=== PATIENT | male | born 1990 ===

== ENCOUNTER 2020-03-02 01:54 | Outpatient (CLI) | payer BC, SELFPAY ==
[2020-03-03 16:39] LABS: COVID-19 RT-PCR Result NEGATIVE (Negative)
== END 2020-03-02 02:14 ==
PROVIDERS: Visit Provider Student in an Organized Health Care Education/Training Program
DX: Z11.52 Encounter for screening for COVID-19 (principal); Z01.818 Encounter for other preprocedural examination
CPT/HCPCS: U0003